=== PATIENT | male | born 1945 | race African-American/Black ===

== ENCOUNTER 2017-08-06 15:13 | Emergency (ER) | payer MEDICARE ==
--- NOTE | 2017-08-06 15:51 | RAD ---
CHEST 1 VIEW: HISTORY: Cough. FINDINGS: No comparison. Cardiac silhouette magnified by projection. Patient rotated rightward. Pulmonary va sculature unremarkable. No lobar consolidation or evidence of pneumothorax. Old left rib fractures. IMPRESSION: No active cardiopulmonary abnormalities are demonstrated. POS: [facility]
[2017-08-06 15:55] LABS: #Eosinphils 0.1 thou/uL (0.0-0.7); #Monocytes 0.6 thou/uL (0.11-0.59); %Basophils 0.4 % (0.0-1.0); %Eosinophils 1.8 % (0.0-10.0); %Lymphocytes 34.9 % (21.0-51.0); %Monocytes 10.3 % (0.0-10.0); %Neutrophils 52.7 % (42.0-75.0); Hemoglobin 12.5 g/dL (14.0-18.0); Mean Corpuscular HGB CONC 31.2 g/dL (32.0-36.0); Mean Corpuscular Hemoglobin 28.7 pg (27.0-31.0); Mean Corpuscular Volume 91.9 fl (80.0-94.0); Mean Platelet Volume 6.7 fL (7.4-10.4); Platelet Count 276 thou/uL (130-400); Red Blood Cell (RBC) Count 4.34 mill/uL (4.70-6.10); White Blood Cell (WBC) Count 5.7 thou/uL (4.8-10.8)
[2017-08-06 16:06] LABS: Anion Gap 14 mmol/L (10-20); BUN (Urea Nitrogen) 12 mg/dL (8.4-25.7); Calc. Creatinine Clearance 0 mL/min (70-130); Carbon Dioxide 24 mmol/L (23-31); Chloride 106 mmol/L (98-107); Estimated GFR-MDRD Greater than 90; Glucose 100 mg/dL (83-110); Sodium 140 mmol/L (136-145)
--- NOTE | 2017-08-06 16:07 | CT ---
NONCONTRAST HEAD CT: HISTORY: Cough. Altered mental status. COMPARISON: None. TECHNIQUE: A noncontrast head CT is performed from the skull base to the skull vertex. FINDINGS: No parenchymal hemorrhage. No extraaxial hematoma. No midline shift. Basilar cisterns are patent. Age-appropriate atrophy. Cortical de la torre-white matter differentiation is preserved. Ventricles and sulci are patent and symmetric. Chronic small-vessel ischemic changes of the white matter suspected. Adequate aeration of the mastoid air cells. There is right maxillary sinus disease. Calvarium is in tact. IMPRESSION: No acute intracranial process. POS: [facility]
[2017-08-06 16:13] LABS: CKMB 1.9 ng/mL (0-6.6); Troponin I Less than 0.010 ng/mL (< 0.028)
[2017-08-06 20:26] LABS: Bilirubin Negative (Negative); Blood, Urine Moderate (Negative); Clarity CLEAR (Clear); Glucose, Urine (Dipstick) Negative (Negative); Leukocyte Moderate (Negative); Nitrite Negative (Negative); Protein, Urine (Dipstick) Negative (Neg-Trace); Specific Gravity, Urine 1.009 (1.002-1.036); pH, Urine 6.5 (5.0-9.0)
[2017-08-06 20:27] LABS: Bacteria/HPF 4+ HPF (None Seen); Hyaline Casts/LPF 0-3 HYALINE CAST LPF (0-3 Hyaline); Pathc Cast-AUWi Flag 0.29 (0-2.49); Squamous Epithelial None Seen HPF (0-3); WBC/HPF 21-50 HPF (0-3)
== END 2017-08-06 22:00 ==
LOC: ERS 15:13
DX: N39.0 Urinary tract infection, site not specified (principal); I10 Essential (primary) hypertension; K21.9 Gastro-esophageal reflux disease without esophagitis; G20 Parkinson's disease; F32.9 Major depressive disorder, single episode, unspecified; F02.80 Dementia in other diseases classified elsewhere, unspecified severity, without behavioral disturbance, psychotic disturbance, mood disturbance, and anxiety; N40.0 Benign prostatic hyperplasia without lower urinary tract symptoms; Z79.899 Other long term (current) drug therapy
CPT/HCPCS: 36415; 51701; 70450; 71045; 80048; 81003; 81015; 82553; 84484; 85025; 87077; 87086; 87186; 93005; 96361; 96374; J0696

== ENCOUNTER 2017-08-12 11:10 | Outpatient (CLI) | payer MEDICARE ==
--- NOTE | 2017-08-14 16:43 | RAD ---
MODIFIED BARIUM SWALLOW IN THE PRESENCE OF SPEECH THERAPIST 08/14/17 HISTORY: Dysphagia, unspecified, feeding difficulties. FINDINGS/IMPRESSION: No aspiration or laryngeal penetration is seen. There is residua in the piriform sinuses and vallecul a. Please see recommendations of the speech therapist for further management. POS: [facility]
== END 2017-08-12 11:11 | disposition home or self-care (01) ==
PROVIDERS: ATTEND Nurse Practitioner Family
DX: I69.091 Dysphagia following nontraumatic subarachnoid hemorrhage (principal); R13.10 Dysphagia, unspecified; R63.3 Feeding difficulties
CPT/HCPCS: 74230; G8996-GN-CL; G8997-GN-CL; G8998-GN-CL